=== PATIENT | female | born 1960 | race Caucasian/White ===

== ENCOUNTER 2019-10-31 20:03 | Emergency (ER) | payer BC ==
[2019-10-31] MEDS ORDERED: Lidocaine 1% with EPINEPHrine 1:100,000 50 ML MDV SUBCUT ONE (21:18)
[2019-10-31] MEDS ORDERED: Bacitracin Oint 1 GM U/D Packet TOP ONE (21:18)
--- NOTE | 2019-10-31 21:18 | EDM.PDOC ---
ED HPI GENERAL MEDICAL PROBLEM - General Chief Complaint: Skin Complaint Stated Complaint: FISH HOOK LT THUMB Time Seen by Provider: 10/31/19 21:18 Source of Information: Reports: Patient - History of Present Illness INITIAL COMMENTS - FREE TEXT/NARRATIVE: 58 year old female present to [facility] for evaluation of Fish hook injury. Fish hook is in left thumb and occurred around 6:30 this evening. Patient is not from the area but believes her tetanus vaccination is up to date. thumb Pain Score (Numeric/FACES): 9 - Related Data Allergies Allergy/AdvReac Type Severity Reaction Status Date / Time IV contrast dye Allergy Hives Uncoded 10/31/19 21:04 Home Meds: Home Meds Pantoprazole Sodium [Protonix] 40 mg PO DAILY 10/31/19 [History] amLODIPine Besylate [Norvasc] 10 mg PO DAILY 10/31/19 [History] Past Medical History Cardiovascular History: Reports: High Cholesterol Gastrointestinal History: Reports: Diverticulosis, GERD RESEARCH CHEMIST History: Reports: Musculoskeletal History: Reports: Fracture Neurological History: Reports: Migraines - Past Surgical History GI Surgical History: Reports: Colon, Colonoscopy Social & Family History - Tobacco Use Smoking Status *Q: Current Every Day Smoker Years of Tobacco use: 40 Packs/Tins Daily: 0.5 - Caffeine Use Caffeine Use: Reports: Coffee - Recreational Drug Use Recreational Drug Use: No ED ROS GENERAL - Review of Systems Review Of Systems: Comprehensive ROS is negative, except as noted in HPI. ED EXAM, SKIN/RASH Exam: See Below Exam Limited By: No Limitations General Appearance: Alert, WD/WN, Mild Distress (fish hook in left thumb) Eye Exam: Bilateral Eye: EOMI, Normal Inspection Ears: Normal External Exam Nose: Normal Inspection Throat/Mouth: Normal Inspection, Normal Voice, No Airway Compromise Respiratory/Chest: No Respiratory Distress Cardiovascular: Normal Peripheral Pulses Peripheral Pulses: 4+: Radial (L) Extremities: Other (fish hook in left thumb) Neurological: Alert, Oriented, CN II-XII Intact, Normal Cognition, Normal Gait, Normal Reflexes, No Motor/Sensory Deficits Psychiatric: Normal Affect, Normal Mood ED SKIN PROCEDURES - Foreign Body Removal Indication:: Fish hook in left thumb Consent Obtained:: Parent Performing Doctor:: Jessica Mercado Anesthesia Type: Regional (Digit block 1% Lidocaine with epi 3cc placed) Findings:: Attempted to use curved locking josé miguel to jerk it out but likely caught on internal nail plate, Betadine was use to prep the area and 18G needle was used to cover the kym to allow for fish hook to be backed out of the wound. Fishing lure return to male significant other. Antibiotic dressing and coban use to apply pressure dressing due to slight bleeding from remaining puncture wound. Complications:: No Course - Vital Signs Last Recorded V/S: Last Vital Signs Temp 36.7 C 10/31/19 21:05 Pulse 76 10/31/19 21:05 Resp 16 10/31/19 21:05 BP 115/79 10/31/19 21:05 Pulse Ox 97 10/31/19 21:05 - Orders/Labs/Meds Meds: Medications Discontinued Medications Generic Name Dose Route Start Last Admin Trade Name Natalia PRN Reason Stop Dose Admin Bacitracin 1 dose 10/31/19 21:18 Bacitracin Oint 1 Gm TOP 10/31/19 21:19 ONETIME ONE Lidocaine/Epinephrine 10 ml 10/31/19 21:18 Xylocaine 1% With Epinephrine 1:100,000 SUBCUT 10/31/19 21:19 ONETIME ONE Departure - Departure Time of Disposition: 21:35 Disposition: Home, Self-Care 01 Clinical Impression: Puncture wound - Discharge Information Instructions: Puncture Wound Referrals: PCP,None [Primary Care Provider] - Forms: ED Department Discharge Additional Instructions: 1. Cleanse wound every am and pm with soap and water. 2. Topical antibiotic ointment every am and pm after cleansing. 3. Tylenol/Ibuprofen for pain if needed. 4. Monitor for signs of secondary infection over the next 3-7 days. 5. If infection concerns, contact PCP to discuss antibiotic needs. 6. Review tetanus vaccination status if not within 5 years consider getting updated in the next 72 hours. Sepsis Event Note (ED) - Evaluation Sepsis Screening Result: No Definite Risk - Focused Exam Vital Signs: Vital Signs Temp Pulse Resp BP Pulse Ox 10/31/19 21:05 36.7 C 76 16 115/79 97
== END 2019-10-31 21:58 | disposition home or self-care (01) ==
LOC: JP.ED 20:03
DX: S61.042A Puncture wound with foreign body of left thumb without damage to nail, initial encounter (principal); K21.9 Gastro-esophageal reflux disease without esophagitis; F17.210 Nicotine dependence, cigarettes, uncomplicated; Z91.041 Radiographic dye allergy status; Z79.899 Other long term (current) drug therapy; W45.8XXA Other foreign body or object entering through skin, initial encounter
CPT/HCPCS: 64450; 99282-25